=== PATIENT | female | born 1945 | race Caucasian/White ===

== ENCOUNTER 2025-03-31 07:21 | Day surgery (SDC) | payer MEDICARE, OTHER, SELFPAY ==
--- OUTSIDE RECORDS SUMMARY | 2025-03-14 10:33 | XMS_ITS ---
Author Organization [facility] Address [address] [place] [address] Care Team Providers Care Automotive Detailer Name Role Phone MARY LORA CNP Primary Care Provider U Sai Love Jr REASON FOR VISIT rectal bleeding Encounters Encounter Location Date Provider Diagnosis [facility] [address] [place] [address] [phone] 02/21/2025 Sai Ramirez Jr Plan Of Treatment Next Appt Details Provider Name:Sai lind Jr, 03/31/2025 09:10:00 AM, [address] [place] [address] , [place], [place], [phone], Progress Notes * JOLYNN CHURCH ADOB: [birth year] (79 yo F)Acc No.[id number]:02/21/2025 EGD and COL/MAC Patient:?JOLYNN CHURCH A Provider:?Sai Ramirez MD :1945???Age:79 Y???Sex:Female D ate:02/21/2025 Address:[address] [place] [address] [place], [id number] Pcp:MARY LORA CNP Subjective: * Chief Complaints: * ???1. Rectal bleeding. * Medical History:? Objective: * Vitals:? Assessment: Plan: * Treatment: * * The named appointment provid er may or may not be the originator of this progress note, and it is not deemed complete until electronically signed by the appointment provider. Sign off status: Pending * Provider:?Sai Ramirez MD Date:?0 02/21/2025 Generated for Hanane hernandez/Yue/Poli on:?03/14/2025 10:32 AM EDT
[2025-03-29 10:15] VITALS: BMI 31.4
--- NOTE | 2025-03-29 14:11 | HO.ANESPROP2 ---
Documented by User: Haylee Alas NP 03/29/25 14:11 HPI - Anesthesia Eval Consult details Narrative: 79yo F for Upper Endoscopy and Colonoscopy Anesthesia Pre-Procedure Meds Is the patient on any of the following meds?: GLP1/DPP4 and SGLT2 Inhib PMFSH Past Medical History Medical History Neuropathy Restless leg syndrome Sleep apnea Elevated cholesterol Diabetes HTN (hypertension) COPD (chronic obstructive pulmonary disease) GERD (gastroesophageal reflux disease) Surgical History Surgical History Hx of hand surgery History of pubovaginal sling History of laparoscopic-assisted vaginal hysterectomy History of carpal tunnel release Hx of reduction mammoplasty Hx of cholecystectomy Hx of tubal ligation History of esophagogastroduodenoscopy (EGD) H/O colonoscopy Social History Social History Household Members: Spouse Are you a primary childcare worker to a significant other at home: No Do you presently have visiting nurse or other home services: No Patient Tobacco Use Status: Former Tobacco user Tobacco use type: Cigarette Use of substances other than those prescribed or required for medical reasons: Yes Have you been hit, kicked, punched, or otherwise hurt by someone within the past year? If so, by whom?: No Spiritual Healthcare Practices: no Latter Day Healthcare Practices: no Cultural Healthcare Practices: no Are you DNR?: Yes Advance Directives Information Provided: Yes (advised to bring copies DOS) Advance Directives on File: No FDLMP: n/a Poor oral hygiene: No Meds Allergies Allergy/AdvReac Type Severity Reaction Status Date / Time phenazopyridine (From Allergy Intermediate Rash Verified 03/29/25 10:10 Pyridium) Sulfa (Sulfonamide Allergy Intermediate Rash Verified 03/29/25 10:10 Antibiotics) Home Medications ?Medication ?Instructions ?Recorded ?Confirmed ?Last Taken ?Type albuterol sulfate 90 mcg/actuation 2 puff inhalation Q4-6H PRN 03/29/25 03/29/25 Unknown History aerosol inhaler (Ventolin HFA) Shortness Of Breath Or Wheezing aspirin 81 mg tablet,delayed 81 mg PO DAILY 03/29/25 03/31/25 03/24/25 06:00 History release cholestyramine 4 gram oral powder 4 g PO DAILY PRN steatorrhea 03/29/25 03/29/25 Unknown History for suspension in a packet (Cholestyramine Light) empagliflozin 10 mg tablet 10 mg PO QAM 03/29/25 03/31/25 1 Week Ago History (Jardiance) ~03/24/25 famotidine 20 mg tablet 20 mg PO BID 03/29/25 03/29/25 Unknown History gabapentin 100 mg tablet 200 mg PO BEDTIME 03/29/25 03/29/25 Unknown History lisinopril 20 mg tablet 20 mg PO DAILY 03/29/25 03/29/25 Unknown History magnesium glycinate 100 mg (as 200 mg PO DAILY 03/29/25 03/29/25 Unknown History glycinate) tablet metformin 500 mg tablet 500 mg PO QAM 03/29/25 03/29/25 Unknown History montelukast 10 mg tablet 10 mg PO DAILY 03/29/25 03/29/25 Unknown History simvastatin 20 mg tablet 20 mg PO BEDTIME 03/29/25 03/29/25 Unknown History tirzepatide (weight loss) 2.5 2.5 mg subcut QWEEK 03/29/25 03/31/25 1 Week Ago History mg/0.5 mL subcutaneous pen ~03/24/25 injector (Zepbound) Exam Height,Weight and Vital Signs: Height 5 ft 7 in Weight 90.809 kg Assessment and Plan Assessment Anesthesia Assessment: Chart Reviewed Documented by User: Reggie Salvador MD 03/31/25 09:06 [facility], [facility] Past Medical History Medical History Neuropathy Restless leg syndrome Sleep apnea Elevated cholesterol Diabetes HTN (hypertension) COPD (chronic obstructive pulmonary disease) GERD (gastroesophageal reflux disease) Functional capacity: independent ambulation Patient : No Surgical History Surgical History Hx of hand surgery History of pubovaginal sling History of laparoscopic-assisted vaginal hysterectomy History of carpal tunnel release Hx of reduction mammoplasty Hx of cholecystectomy Hx of tubal ligation History of esophagogastroduodenoscopy (EGD) H/O colonoscopy History of Problems with Anesthesia: No Social History Social History Household Members: Spouse Are you a primary childcare worker to a significant other at home: No Do you presently have visiting nurse or other home services: No Patient Tobacco Use Status: Former Tobacco user Tobacco use type: Cigarette Use of substances other than those prescribed or required for medical reasons: Yes Have you been hit, kicked, punched, or otherwise hurt by someone within the past year? If so, by whom?: No Spiritual Healthcare Practices: no Latter Day Healthcare Practices: no Cultural Healthcare Practices: no Are you DNR?: Yes Advance Directives Information Provided: Yes (advised to bring copies DOS) Advance Directives on File: No FDLMP: n/a Poor oral hygiene: No Meds Allergies Allergy/AdvReac Type Severity Reaction Status Date / Time phenazopyridine (From Allergy Intermediate Rash Verified 03/29/25 10:10 Pyridium) Sulfa (Sulfonamide Allergy Intermediate Rash Verified 03/29/25 10:10 Antibiotics) Home Medications ?Medication ?Instructions ?Recorded ?Confirmed ?Last Taken ?Type albuterol sulfate 90 mcg/actuation 2 puff inhalation Q4-6H PRN 03/29/25 03/29/25 Unknown History aerosol inhaler (Ventolin HFA) Shortness Of Breath Or Wheezing aspirin 81 mg tablet,delayed 81 mg PO DAILY 03/29/25 03/31/25 03/24/25 06:00 History release cholestyramine 4 gram oral powder 4 g PO DAILY PRN steatorrhea 03/29/25 03/29/25 Unknown History for suspension in a packet (Cholestyramine Light) empagliflozin 10 mg tablet 10 mg PO QAM 03/29/25 03/31/25 1 Week Ago History (Jardiance) ~03/24/25 famotidine 20 mg tablet 20 mg PO BID 03/29/25 03/29/25 Unknown History gabapentin 100 mg tablet 200 mg PO BEDTIME 03/29/25 03/29/25 Unknown History lisinopril 20 mg tablet 20 mg PO DAILY 03/29/25 03/29/25 Unknown History magnesium glycinate 100 mg (as 200 mg PO DAILY 03/29/25 03/29/25 Unknown History glycinate) tablet metformin 500 mg tablet 500 mg PO QAM 03/29/25 03/29/25 Unknown History montelukast 10 mg tablet 10 mg PO DAILY 03/29/25 03/29/25 Unknown History simvastatin 20 mg tablet 20 mg PO BEDTIME 03/29/25 03/29/25 Unknown History tirzepatide (weight loss) 2.5 2.5 mg subcut QWEEK 03/29/25 03/31/25 1 Week Ago History mg/0.5 mL subcutaneous pen ~03/24/25 injector ([employer]) Exam Exam Date and Time: 03/31/25 Airway TM Dist: >3cm Neck ROM: Full Heart: rrr Lungs: cta Other: normal orIentation a,nd cognition Assessment and Plan Assessment Anesthesia Assessment: Anesthesia Plan Discussed Final Anesthetic Review History of Problems with Anesthesia: No NPO: Yes ASA Class: II Final Preanesthetic Review: No Changes in Pt Med Stat and Consent Obtained/Reviewed Patient Risk: Low Procedure Risk: Low Anesthetic Plan Anesthetic Plan: MAC: Disposition: Standard PACU
[2025-03-31 08:11] LABS: Glucose, Whole Blood 128 mg/dL (60-115)
[2025-03-31] MEDS: Lactated Ringers 1,000 ML 100 ML IVCONT (08:11)
[2025-03-31 08:12] VITALS: BP 114/63; PULSE 62; RESP 16; TEMP 36.4; O2SAT 96
--- NOTE | 2025-03-31 09:09 | MHC.SHP ---
Pre-Procedural Eval Section A - 24 Hr Update-Section A only Date of Service: 03/31/25 Section B - Complete if H&P > 30 days Chief Complaint: rectal bleeding Relevant Family History (Specify if Yes): No Relevant Social History: None Present Medications: see Short Stay Collaborative assessment Medical History: No relevant PMH History of Previous Operations: No relevant previous surgery Allergies: Allergies Allergy/AdvReac Type Severity Reaction Status Date / Time phenazopyridine (From Allergy Intermediate Rash Verified 03/29/25 10:10 Pyridium) Sulfa (Sulfonamide Allergy Intermediate Rash Verified 03/29/25 10:10 Antibiotics) Review of Systems Sugical H&P ROS: Negative: Constitution, Cardiovascular, Respiratory, Neurological, Psychiatric, Hem-Onc, Allergic/Immunologic, Gastrointestinal, Genitourinary, Musculoskeletal, Integumentary, Endocrine and Eyes/Ears/Nose/Throat Exam Surgical H&P Exam: Normal: HEENT, Normal: Heart, Normal: Lungs, Normal: Extremities, Normal: Abdomen, Normal: Skin and Normal: Neurological Plan Diagnosis/Plan: Unchanged I have reviewed the history and physical and performed a pertinent physical examination on my patient. No changes have occurred unless specified. Time Spent With Patient Time: Total time managing care of this patient today ____ minutes.
[2025-03-31 10:07] VITALS: BP 104/46; PULSE 70; RESP 16; TEMP 36.2; O2SAT 98
[2025-03-31 10:10] VITALS: BP 113/59; PULSE 53; RESP 16; O2SAT 100
[2025-03-31 10:25] VITALS: BP 142/58; PULSE 58; RESP 16; TEMP 36.1; O2SAT 100
--- NOTE | 2025-03-31 11:16 | P.BOP_ITS ---
Brief Operative Note Date of Service: 03/31/25 Pre-op diagnosis: recta bleeding Procedure: egd colon Surgeon: Sai Ramirez MD Was an Special Library Librarian used for this Procedure?: No Estimated blood loss (mL): 5 Pathology: other Condition: stable Disposition: PACU
--- NOTE | 2025-03-31 11:35 | OP_ITS ---
DATE OF SERVICE: 03/31/2025 SURGEON: Sai Ramirez MD INDICATIONS: 1. Gastroesophageal reflux disease. 2. Colon cancer screening. 3. Diarrhea. PREOPERATIVE DIAGNOSIS: POSTOPERATIVE DIAGNOSIS: PROCEDURE PERFORMED: Upper endoscopy with biopsy, colonoscopy to the terminal ileum with biopsy. ESTIMATED BLOOD LOSS: COMPLICATIONS: ANESTHESIA: ASSISTANTS: SPECIMENS: MEDICATIONS: Monitored anesthesia care. DESCRIPTION OF PROCEDURE: History and physical performed. The risks and benefits of the procedure were explained to the patient. Informed consent was obtained. The patient was placed in the left lateral decubitus position. The Olympus video gastroscope was introduced into the esophagus, stomach, and duodenum. Examination was performed. The scope was removed. She was repositioned for colonoscopy. A digital rectal exam was performed and was found to be normal. The Olympus pediatric video colonoscope was introduced into the rectum and advanced to the cecum. The cecum was identified by transillumination, palpation, and identification of the ileocecal valve. Examination was performed. The scope was removed. She tolerated both procedures well and was returned to recovery room in stable condition. FINDINGS: Upper endoscopy: 1. Esophagus: The esophagus showed slightly irregular EG junction. No polyps were identified. 2. Stomach: The stomach was normal. 3. Duodenum: Bulb and second portion were normal. Biopsies were obtained from the EG junction and from the antrum. Colonoscopy: The terminal ileum was examined and appeared normal. The visualized colonic mucosa was within normal limits. The quality of the prep was good. A single polyp was identified and removed using the biopsy forceps. This was located at 60 cm. There was extensive sigmoid diverticulosis with scattered diverticulosis throughout the remainder of the colon. Retroflexed examination showed small internal hemorrhoids. IMPRESSION: 1. Gastroesophageal reflux disease. 2. Colon polyp. RECOMMENDATION: Follow up the biopsy results. MD RANCHO Lew/CÉSAR / [id number] [facility] HOSPITALJayla
== END 2025-03-31 10:47 | disposition home or self-care (01) ==
PROVIDERS: PCP Nurse Practitioner Family; Visit Provider Internal Medicine Gastroenterology
PROC: (CPT 45380; principal; 2025-03-31 09:10)
DX: Z12.11 Encounter for screening for malignant neoplasm of colon (principal); D12.4 Benign neoplasm of descending colon; K57.30 Diverticulosis of large intestine without perforation or abscess without bleeding; K64.8 Other hemorrhoids; K21.9 Gastro-esophageal reflux disease without esophagitis; K22.89 Other specified disease of esophagus; E11.9 Type 2 diabetes mellitus without complications; I10 Essential (primary) hypertension; E78.00 Pure hypercholesterolemia, unspecified; J44.9 Chronic obstructive pulmonary disease, unspecified; G47.30 Sleep apnea, unspecified; Z99.89 Dependence on other enabling machines and devices; Z87.891 Personal history of nicotine dependence
CPT/HCPCS: 45380; 43239; 82947; 88305; 88313; 88342; J2003; J2704; J3010